=== PATIENT | female | born 1980 | race Caucasian/White ===

== ENCOUNTER 2017-12-09 07:08 | Emergency (ER) | payer OTHER ==
[2017-12-09 07:14] VITALS: BP 136/91
--- NOTE | 2017-12-09 07:40 | EDM.PDOC ---
ED HPI GENERAL MEDICAL PROBLEM - General Chief Complaint: Back Pain or Injury Stated Complaint: back injury Time Seen by Provider: 12/09/17 07:34 Source of Information: Reports: Patient History Limitations: Reports: No Limitations - History of Present Illness INITIAL COMMENTS - FREE TEXT/NARRATIVE: Patient is a 37-year-old female well known to myself states that she was working at the [employer] when she twisted felt a tweak and then she did develop lower back pain lower back pain was between L1 and L5 radiating to both hips negative straight leg at 43 Onset: Sudden Duration: Day(s): (Physical), Getting Worse Location: Reports: Back Quality: Reports: Ache, Sharp Severity: Moderate (6-7 out of 10 pain Motrin last night 400 mg with improvement ) Improves with: Reports: Rest Worsens with: Reports: Other, Movement Context: Reports: Activity Treatments COMMERCIAL LOAN ADMINISTRATOR: Reports: NSAIDS, Other (see below) Other Treatments COMMERCIAL LOAN ADMINISTRATOR: heat Bilateral Back Pain Score (Numeric/FACES): 7 - Related Data Allergies Allergy/AdvReac Type Severity Reaction Status Date / Time ciprofloxacin Allergy Hives Verified 12/09/17 07:09 sulfamethoxazole Allergy Hives Verified 12/09/17 07:09 [From Bactrim] trimethoprim [From Bactrim] Allergy Hives Verified 12/09/17 07:09 Home Meds: Home Meds FLUoxetine HCl [Fluoxetine HCl] 20 mg PO DAILY 12/09/17 [History] Ibuprofen 400 mg PO Q6H 12/09/17 [History] Mirtazapine 30 mg PO BEDTIME 12/09/17 [History] Past Medical History Cardiovascular History: Reports: High Cholesterol Psychiatric History: Reports: Anxiety - Infectious Disease History Infectious Disease History: Reports: Chicken Pox - Past Surgical History HEENT Surgical History: Reports: Tonsillectomy Female Surgical History: Reports: Endometrial Ablation, Tubal Ligation Musculoskeletal Surgical History: Reports: Carpal Tunnel Dermatological Surgical History: Reports: Plastic Surgical Reconstruction/Repair Social & Family History - Tobacco Use Smoking Status *Q: Current Every Day Smoker Years of Tobacco use: 25 Packs/Tins Daily: 1 - Caffeine Use Caffeine Use: Reports: Coffee - Recreational Drug Use Recreational Drug Use: No ED ROS GENERAL - Review of Systems Review Of Systems: See Below Constitutional: Reports: No Symptoms HEENT: Reports: No Symptoms Respiratory: Reports: No Symptoms Cardiovascular: Reports: No Symptoms Endocrine: Reports: No Symptoms GI/Abdominal: Reports: No Symptoms : Reports: No Symptoms Musculoskeletal: Reports: Back Pain (Worse with movement) Skin: Reports: No Symptoms Neurological: Reports: No Symptoms Psychiatric: Reports: No Symptoms Immunologic: Reports: No Symptoms ED EXAM,LOWER BACK PAIN/INJURY - Physical Exam Exam: See Below Exam Limited By: No Limitations General Appearance: Alert, WD/WN Ears: Normal External Exam, Normal Canal, Hearing Grossly Normal, Normal TMs Nose: Normal Inspection, Normal Mucosa, No Blood Throat/Mouth: Normal Inspection, Normal Lips, Normal Teeth, Normal Gums, Normal Oropharynx, Normal Voice, No Airway Compromise Head: Atraumatic, Normocephalic Neck: Normal Inspection, Supple, Non-Tender, Full Range of Motion Respiratory/Chest: No Respiratory Distress, Lungs Clear, Normal Breath Sounds, No Accessory Muscle Use, Chest Non-Tender Cardiovascular: Normal Peripheral Pulses, Regular Rate, Rhythm, No Edema, No Gallop, No JVD, No Murmur, No Rub GI/Abdominal: Normal Bowel Sounds, Soft, Non-Tender, No Organomegaly, No Distention, No Abnormal Bruit, No Mass (Female) Exam: Deferred Rectal (Female) Exam: Deferred Back Exam: Decreased Range of Motion, Muscle Spasm, Paraspinal Tenderness Extremities: Normal Inspection, Normal Range of Motion, Non-Tender, No Pedal Edema, Normal Capillary Refill Neurological: Alert Psychiatric: Normal Affect, Normal Mood Skin Exam: Warm, Dry, Intact, Normal Color, No Rash Lymphatic: No Adenopathy Course - Vital Signs Last Recorded V/S: Last Vital Signs Temp 97.4 F 12/09/17 07:13 Pulse 77 12/09/17 07:13 Resp 18 12/09/17 07:13 BP 136/91 H 12/09/17 07:13 Pulse Ox 100 12/09/17 07:13 Departure - Departure Time of Disposition: 08:00 Disposition: Home, Self-Care 01 Condition: Fair Clinical Impression: Pain in lower back Qualifiers: Chronicity: acute Back pain laterality: bilateral Sciatica presence: unspecified whether sciatica present Qualified Code(s): M54.5 - Low back pain - Discharge Information *PRESCRIPTION DRUG MONITORING PROGRAM REVIEWED*: No *COPY OF PRESCRIPTION DRUG MONITORING REPORT IN PATIENT RHYS: No Instructions: Muscle Strain, Lowb-he-Pfon Referrals: PCP,None [Primary Care Provider] - Care Plan Goals: Patient is seen evaluated at this time we'll treat her for muscle spasm and lower back pain patient is to use Motrin 800 milligrams 3 times a day times a day plus Flexeril 10 mg 3 times a day she is to follow-up with primary physician in 5 days she is to use heat contrast with cold 20 minutes on and 20 minutes off
== END 2017-12-09 08:15 | disposition home or self-care (01) ==
LOC: LL.ED 07:08
DX: M54.5 Low back pain (principal); M62.830 Muscle spasm of back; F17.210 Nicotine dependence, cigarettes, uncomplicated; Z88.2 Allergy status to sulfonamides; Z79.899 Other long term (current) drug therapy; Z88.1 Allergy status to other antibiotic agents
CPT/HCPCS: 99283